=== PATIENT | male | born 1940 | race Caucasian/White ===

== ENCOUNTER 2016-08-04 20:23 | Emergency (ER) | payer OTHER ==
[~2016-08-04] VITALS: Ht 170.2 cm; Wt 59.0 kg
--- NOTE | ~2016-08-04 | EKG ---
[place] [address] [facility] [place] [address] ELECTROCARDIOGRAM REPORT Name: SU MINA Room #: DEP Shahla#: [id number] Admission: 08/04/16 Attend Phys: Discharge: 08/04/16 Date of : 44 Report #: [id number] THIS REPORT FOR: //name// [facility] ED Test Date: 2016-08-04 Test Time: 20:31:56 Pat Name: SU MINA Department: Room: Gender: M Day Treatment Clinician/Art Therapist: [id number] : 1940 Requested By: Nicolas Ferraro Order Number: [id number] MD: Cristian Huber Measurements Intervals [place] Rate: 94 P: 57 AL: 164 QRS: 16 QRSD: 105 T: 39 QT: 352 QTc: 441 Interpretive Statements Sinus tachycardia Occasional premature ventricular complexes No previous ECG available for comparison Electronically Signed On 08-05-2016 9:01:53 CDT by Cristian Huber [email or web address] <ELECTRONICALLY SIGNED> By: Cristian Huber MD, [facility] 08/05/16 0901 30 30 Cristian Huber MD, FACC /EPI
[2016-08-04 21:05] LABS: HEMATOCRIT 38.1 % (42.0-52.0); MCHC 34.1 g/dL (28.0-37.0); MCV 85.2 fL (80.0-100.0); PLATELET COUNT 253 thou/uL (150-400); RBC 4.48 mil/uL (4.50-6.00); RDW 14.3 % (10.5-14.5); WBC 5.3 thou/uL (4.0-11.0)
[2016-08-04 21:06] LABS: MANUAL DIFF YES
[2016-08-04] MEDS ORDERED: ASPIRIN81 M2 PO (21:06)
[2016-08-04] MEDS ORDERED: VITAMIN B-12500 MCG PO (21:08)
[2016-08-04] MEDS ORDERED: CLARITIN10 MG PO (21:09)
[2016-08-04] MEDS ORDERED: INTELENCE200 MG PO (21:09)
[2016-08-04] MEDS ORDERED: PRAVACHOL40 MG PO (21:10)
[2016-08-04] MEDS ORDERED: NAMENDA 10 MG T10 MG PO (21:10)
[2016-08-04] MEDS ORDERED: ISENTRESS400 MG PO (21:11)
[2016-08-04] MEDS ORDERED: VIRACEPT625 MG PO (21:14)
[2016-08-04] MEDS ORDERED: DOXYCYCLINE 10100 MG PO (21:14)
[2016-08-04] MEDS ORDERED: NASACORT10.8 ML NS (21:14)
[2016-08-04 21:15] LABS: ANION GAP 9 mmol/L (7-16); BUN 11 mg/dL (7-18); CALCIUM 8.4 mg/dL (8.5-10.1); CHLORIDE 93 mmol/L (98-107); CO2 25 mmol/L (21-32); CREATININE 0.8 mg/dL (0.7-1.3); GLUCOSE 108 mg/dL (74-106); POTASSIUM 4.2 mmol/L (3.5-5.1); SODIUM 127 mmol/L (136-145)
[2016-08-04] MEDS ORDERED: EXELON1 EAC1 TD (21:15)
[2016-08-04] MEDS ORDERED: XANAX 0.25 MG0.25 MG PO (21:16)
[2016-08-04] MEDS ORDERED: IBUPROFEN 400400 M2 PO (21:17)
[2016-08-04] MEDS ORDERED: RESTASIS1 EACH OPHTHALMIC (21:17)
[2016-08-04] MEDS ORDERED: TRAMADOL 50 MG50 MG PO (21:18)
[2016-08-04 21:23] LABS: TROPONIN-I < 0.04 ng/mL (<0.04-0.07)
[2016-08-04 21:44] LABS: ANISOCYTOSIS 1+; TOTAL CELL COUNT 100
[2016-08-04 22:43] VITALS: BP 141/89
== END 2016-08-04 23:02 ==
LOC: ER 20:23
PROVIDERS: Physician Assistant
DX: F03.90 Unspecified dementia, unspecified severity, without behavioral disturbance, psychotic disturbance, mood disturbance, and anxiety (principal); S05.10XD Contusion of eyeball and orbital tissues, unspecified eye, subsequent encounter; W18.30XD Fall on same level, unspecified, subsequent encounter

== ENCOUNTER 2016-12-08 09:16 | Emergency (ER) | payer OTHER ==
[~2016-12-08] VITALS: Ht 172.7 cm; Wt 63.5 kg
[~2016-12-08 09:16] MED LIST: ASPIRIN81 M2 PO; CLARITIN10 MG PO; DOXYCYCLINE 10100 MG PO; EXELON1 EAC1 TD; IBUPROFEN 400400 M2 PO; INTELENCE200 MG PO; ISENTRESS400 MG PO; NAMENDA 10 MG T10 MG PO; NASACORT10.8 ML NS; PRAVACHOL40 MG PO; RESTASIS1 EACH OPHTHALMIC; TRAMADOL 50 MG50 MG PO; VIRACEPT625 MG PO; VITAMIN B-12500 MCG PO; XANAX 0.25 MG0.25 MG PO
[2016-12-08] MEDS ORDERED: MELATONIN1 MG PO (09:32)
[2016-12-08] MEDS ORDERED: LEXAPRO5 MG PO (09:35)
[2016-12-08] MEDS ORDERED: COLACE100 MG PO (09:35)
[2016-12-08] MEDS ORDERED: LEVOTHYROXIN0.025 MG PO (09:37)
[2016-12-08 09:47] LABS: ABSOLUTE NEUTROPHILS 4.2 thou/uL (1.4-8.2); BASOPHILS 0.2 % (0.0-2.0); EOSINOPHILS 1.1 % (0.0-3.0); HEMATOCRIT 38.1 % (42.0-52.0); HEMOGLOBIN 13.1 gm/dL (14.0-18.0); LYMPHOCYTES 18.1 % (24.0-44.0); MCH 29.4 pg (26.0-34.0); MCHC 34.4 g/dL (28.0-37.0); MCV 85.5 fL (80.0-100.0); MONOCYTES 8.8 % (1.0-8.0); PLATELET COUNT 204 thou/uL (150-400); POLYS 71.8 % (36.0-66.0); RBC 4.46 mil/uL (4.50-6.00); WBC 5.9 thou/uL (4.0-11.0)
[2016-12-08 09:48] LABS: MANUAL DIFF NO
[2016-12-08 09:50] LABS: CALCIUM 8.5 mg/dL (8.5-10.1); CREATININE 0.9 mg/dL (0.7-1.3)
[2016-12-08 09:51] LABS: POTASSIUM 4.5 mmol/L (3.5-5.1)
[2016-12-08 09:57] LABS: ALBUMIN 3.4 g/dL (3.4-5.0); DIRECT BILIRUBIN 0.1 mg/dL (<0.1-0.3); MAGNESIUM 1.8 mg/dL (1.8-2.4); TOTAL BILIRUBIN 0.7 mg/dL (<0.1-1.0); TOTAL PROTEIN 6.2 g/dL (6.4-8.2)
[2016-12-08 10:58] VITALS: BP 123/78
== END 2016-12-08 12:26 | disposition home or self-care (01) ==
LOC: ER 09:16
PROVIDERS: Emergency Medicine
DX: E87.1 Hypo-osmolality and hyponatremia (principal); F03.91 Unspecified dementia, unspecified severity, with behavioral disturbance; K21.9 Gastro-esophageal reflux disease without esophagitis; E78.5 Hyperlipidemia, unspecified; I10 Essential (primary) hypertension; E03.9 Hypothyroidism, unspecified; F32.9 Major depressive disorder, single episode, unspecified; G89.29 Other chronic pain; F41.9 Anxiety disorder, unspecified; G62.9 Polyneuropathy, unspecified; Z21 Asymptomatic human immunodeficiency virus [HIV] infection status